=== PATIENT | female | born 1945 | race Caucasian/White ===

== ENCOUNTER 2017-07-09 15:38 | Emergency (ER) | payer MEDICARE ==
[2017-07-09 16:20] LABS: BASOPHIL % 0.6 % (0.0-0.4); Bilirubin NEGATIVE (NEGATIVE); Blood 250 Ery/ul (0-5); COMPLETE URINE MICROSCOPIC? YES; Collection Type CATH; Eosinophil % 3.7 % (0.00-5.0); Glucose NEGATIVE (NEGATIVE); Granulocytes % 58.8 % (36.0-66.0); Leukocyte Esterase 2+ (NEGATIVE); Lymphocytes % 28.4 % (24.0-44.0); Mean Cell Volume 101.4 fl (78-100); Mean Corpuscular Hemoglobin 32.1 pg (26-32); Mean Platelet Volume 9.2 fl (6-9.5); Monocytes % 8.5 % (0.0-12.0); Platelet Count 329 K/mm3 (150-450); Red Blood Count 3.64 M/mm3 (4.1-5.4); Red Cell Distribution Width 13.2 % (11.5-14.0); White Blood Count 8.5 K/mm3 (4.0-10.5)
[2017-07-09 16:21] LABS: ADD URINE CULTURE? YES (NO)
--- NOTE | 2017-07-09 16:23 | ERPHSYRPT ---
- History of Present Illness Time Seen by Provider: 07/09/17 16:02 Source: patient, family Patient Subjective Stated Complaint: pt here for urinary retention since 0900 this am, pain to urine Triage Nursing Assessment: pt alert.walked in, resp easy, skin w/d pink, no fever, abd tender to touch, pt colostomy Physician History: CC: unable to void Hx; 72 y/o patient of Dr Erickson. She has urge to urinate but unable since first void this AM. No abd pain. No back or neck pain. No N/T/W. No fever or chills. No hx of this in the past. Timing/Duration: today Allergies/Adverse Reactions: iron Allergy (Severe, Verified 07/09/17 15:54) propoxyphene HCl [From Darvon] Allergy (Mild, Verified 07/09/17 15:54) Sulfa (Sulfonamide Antibiotics) [Sulfa(Sulfonamide Antibiotics)] Allergy (Mild, Verified 07/09/17 15:54) Tetanus Vaccines and Toxoid [Tetanus] Allergy (Mild, Verified 07/09/17 15:54) Home Medications: Calcium Carbonate/Vitamin D3 [Calcium 600-Vit D3 200 Tablet] 1 tab PO DAILY 07/07 [History] Nitrofurantoin Macrocrystal [Nitrofurantoin] 100 mg PO DAILY 05/05/12 [History] Omeprazole 20 MG [Prilosec 20 mg] 20 mg PO DAILY 05/05/12 [History] Verapamil HCl Sr 240 mg [Isoptin S.r. 240 mg] 240 mg PO DAILY 05/05/12 [ History] Glimepiride 4 mg [Amaryl 4 mg] 4 mg PO BID 05/07/12 [History] Vitamin B6 & B12 1 tab PO HS 05/07/12 [History] Vitamin D 1 tab PO HS 05/07/12 [History] Hx Tetanus, Diphtheria Vaccination/Date Given: No (unk) Hx Influenza Vaccination/Date Given: No Hx Pneumococcal Vaccination/Date Given: Yes - Review of Systems Constitutional: No Fever, No Chills Eyes: No Symptoms Ears, Nose, & Throat: No Symptoms Respiratory: No Cough, No Dyspnea Cardiac: No Chest Pain Abdominal/Gastrointestinal: No Abdominal Pain, No Nausea, No Vomiting Genitourinary Symptoms: Urinary Retention, No Dysuria Skin: No Rash Neurological: No Headache All Other Systems: Reviewed and Negative - Past Medical History Pertinent Past Medical History: Yes (COPD, crohns disease, colostomy) Neurological History: No Pertinent History ENT History: No Pertinent History Cardiac History: Hypertension Respiratory History: Asthma Endocrine Medical History: Diabetes Type II Musculoskeletal History: Arthritis GI Medical History: Crohns Disease, Gallbladder Disease, Hernia, Other History: Other Psycho-Social History: No Pertinent History Female Reproductive Disorders: No Pertinent History Other Medical History: colostomy,uterus puss pocket, constant uti on antibiotics all the time,reflux current vaginal bleeding - Past Surgical History Past Surgical History: Yes Neuro Surgical History: No Pertinent History Cardiac: No Pertinent History Respiratory: No Pertinent History Gastrointestinal: Cholecystectomy, Colon Resection Genitourinary: No Pertinent History Musculoskeletal: No Pertinent History Female Surgical History: No Pertinent History Other Surgical History: tonsilectomy, ostomy, lt eye sty taken off - Social History Smoking Status: Former smoker How long have you smoked: 30 YRS AGO Exposure to second hand smoke: No Drug Use: none Patient Lives Alone: No - Female History Hx Last Menstrual Period: post Hx Now: No - Nursing Vital Signs Nursing Vital Signs: Initial Vital Signs Temperature 97.5 F 07/09/17 15:44 Pulse Rate 109 H 07/09/17 15:44 Respiratory Rate 18 07/09/17 15:44 Blood Pressure 157/84 07/09/17 15:44 O2 Sat by Pulse Oximetry 94 L 07/09/17 15:44 Pain Scale Pain Intensity 10 - Physical Exam General Appearance: alert Eye Exam: PERRL/EOMI Ears, Nose, Throat Exam: moist mucous membranes Neck Exam: normal inspection, non-tender, supple Respiratory Exam: normal breath sounds Cardiovascular Exam: regular rate/rhythm Gastrointestinal/Abdomen Exam: soft, other (functioning colostomy), No tenderness, No distention Extremity Exam: normal inspection, normal range of motion Neurologic Exam: alert, oriented x 3, cooperative, sensation nml, No motor deficits Skin Exam: warm, dry, No rash SpO2 Interpretation: normal SpO2: 94 Oxygen Delivery: Room Air - Course Nursing assessment & vital signs reviewed: Yes Ordered Tests: Active Orders 24 hr Category Date Time Status Myrick [Catheter-Varnell Myrick] STAT Care 07/09/17 16:36 Active IV Insertion STAT Care 07/09/17 16:35 Active CBC W DIFF Stat Lab 07/09/17 16:00 Completed CMP Stat Lab 07/09/17 16:00 Completed CULTURE,URINE Stat Lab 07/09/17 16:00 Received UA W/ MICROSCOPIC Stat Lab 07/09/17 16:00 Completed Lab/Rad Data: Laboratory Result Diagrams 07/09/17 16:00 07/09/17 16:00 Laboratory Results 07/09/17 07/09/17 07/09/17 Range/Units 16:00 16:00 16:00 WBC 8.5 (4.0-10.5) K/mm3 RBC 3.64 L (4.1-5.4) M/mm3 Hgb 11.7 L (12.0-16.0) gm/dl Hct 36.9 (35-47) % MCV 101.4 H (78-100) fl MCH 32.1 H (26-32) pg MCHC 31.7 L (32-36) g/dl RDW 13.2 (11.5-14.0) % Plt Count 329 (150-450) K/mm3 MPV 9.2 (6-9.5) fl Gran % 58.8 (36.0-66.0) % Lymphocytes % 28.4 (24.0-44.0) % Monocytes % 8.5 (0.0-12.0) % Eosinophils % 3.7 (0.00-5.0) % Basophils % 0.6 (0.0-0.4) % Basophils # 0.05 (0-0.4) Sodium 137 (136-145) mEq/L Potassium 4.0 (3.5-5.1) mEq/L Chloride 101 (98-107) mEq/L Carbon Dioxide 23.0 (21-32) mEq/L Anion Gap 17.0 H (5-15) MEQ/L BUN 17 (9-20) mg/dL Creatinine 1.20 (0.55-1.30) mg/dl Estimated GFR 47 ML/MIN Glucose 150 H (70-110) MG/DL Calcium 9.5 (8.5-10.1) mg/dL Total Bilirubin 0.50 (0.2-1.0) mg/dL AST 31 (15-37) U/L ALT 17 (12-78) U/L Alkaline Phosphatase 60 (46-116) U/L Serum Total Protein 8.5 H (6.4-8.2) gm/dL Albumin 3.6 (3.4-5.0) g/dL Ur Collection Type CATH Urine Color YELLOW (YELLOW) Urine Appearance HAZY (CLEAR) Urine pH 7.0 (5-6) Ur Specific [place] 1.010 (1.005-1.025) Urine Protein 1+ (Negative) Urine Ketones NEGATIVE (NEGATIVE) Urine Blood 250 (0-5) Kory/ul Urine Nitrite NEGATIVE (NEGATIVE) Urine Bilirubin NEGATIVE (NEGATIVE) Urine Urobilinogen NORMAL (0-1) mg/dL Ur Leukocyte Esterase 2+ (NEGATIVE) Urine Microscopic RBC 2-5 (0-2) /HPF Urine Microscopic WBC 50-100 (0-5) /HPF Urine Bacteria MODERATE (NEGATIVE) /HPF Urine Glucose NEGATIVE (NEGATIVE) mg/dL Specimen Received 07/09/17 1600 - Progress Progress Note: 07/09/17 17:12 She has UTI. Feels better after bladder drained with myrick. Will Rx keflex, send home with myrick to be removed at home in AM with appt Dr Erickson later in day. Counseled pt/family regarding: lab results, diagnosis, need for follow-up - Departure Time of Disposition: 17:12 Departure Disposition: Home Clinical Impression: Urinary retention UTI (urinary tract infection) Qualifiers: Urinary tract infection type: acute cystitis Hematuria presence: without hematuria Qualified Code(s): N30.00 - Acute cystitis without hematuria Condition: Stable Critical Care Time: No Referrals: TESSA ERICKSON MD [Primary Care Provider] - Instructions: Care for Your Myrick Catheter -- Female, Urinary Tract Infection ( UTI) Additional Instructions: See Dr Erickson tomorrow at 11:00 AM for recheck- [place] office. Prescriptions: Cephalexin Mh 500 mg [Keflex 500 mg] 1 cap PO QID #28 capsule
[2017-07-09 16:42] LABS: ALBUMIN 3.6 g/dL (3.4-5.0); BILIRUBIN,TOTAL 0.5 mg/dL (0.2-1.0); Total Protein 8.5 gm/dL (6.4-8.2)
[2017-07-09 17:06] LABS: Bacteria MODERATE /HPF (NEGATIVE); WBC 50-100 /HPF (0-5)
[2017-07-09 17:33] VITALS: BP 126/64; PULSE 72; O2SAT 96
== END 2017-07-09 17:33 | disposition home or self-care (01) ==
LOC: ED 15:38
DX: N30.00 Acute cystitis without hematuria (principal); R33.9 Retention of urine, unspecified; Z79.899 Other long term (current) drug therapy; I10 Essential (primary) hypertension; E11.9 Type 2 diabetes mellitus without complications
CPT/HCPCS: 36000; 36415; 51702; 80053; 81000; 85025; 87086; 99284

== ENCOUNTER 2017-07-13 05:48 | Emergency (ER) | payer MEDICARE ==
--- NOTE | 2017-07-13 06:37 | ERPHSYRPT ---
- History of Present Illness Time Seen by Provider: 07/13/17 06:13 Source: patient Patient Subjective Stated Complaint: PT REPORTS BLOOD ET SEDEMINT IN CATH- REPORTS RECENT INCIDENT OF URINARY RETENTION WITH CATH PLACEMENT-CATH REMOVED ET REPLACED 2 DAYS LATER-PT REPORTS SHE IS VERY SORE WHERE THE CATH IS-REPORTS SHE FIRST NOTICED BLOOD LAST NIGHT-STATES SHE ALSO HAS A SORE THROAT ET A HEADACHE Triage Nursing Assessment: PT PINK WARM ET DRY-SEDEMENT NOTED IN CATH BAG-DARK COLORED URINE NOTED WELL-ABD TENDER ET SOFT-RESP EASY ET NONLABORED-PT MOVING ALL EXTETREMITES WITH EASE Physician History: CC: blood in catheter Hx: 72 y/o patient of Dr Erickson had urinary retention past . She had myrick placed. Urine culture no growth but she was placed on keflex. She took the catheter out Thursday AM and saw Dr Erickson with 3 normal voids. She then had further urinary retention and pain so she had myrick replaced at [facility]. She is supposed to arrange follow up with Dr Schwab. However, last night she noted blood in the urine and a clot in the catheter bag. She has been scared all night and unable to sleep. She was worried about the blood in the myrick. No anticoagulants. No prior hx of urinary problems. Allergies/Adverse Reactions: iron Allergy (Severe, Verified 07/13/17 06:03) propoxyphene HCl [From Darvon] Allergy (Mild, Verified 07/13/17 06:03) Sulfa (Sulfonamide Antibiotics) [Sulfa(Sulfonamide Antibiotics)] Allergy (Mild, Verified 07/13/17 06:03) Tetanus Vaccines and Toxoid [Tetanus] Allergy (Mild, Verified 07/13/17 06:03) Home Medications: Calcium Carbonate/Vitamin D3 [Calcium 600-Vit D3 200 Tablet] 1 tab PO DAILY 07/07 [History] Nitrofurantoin Macrocrystal [Nitrofurantoin] 100 mg PO DAILY 05/05/12 [History] Omeprazole 20 MG [Prilosec 20 mg] 20 mg PO DAILY 05/05/12 [History] Verapamil HCl Sr 240 mg [Isoptin S.r. 240 mg] 240 mg PO DAILY 05/05/12 [ History] Glimepiride 4 mg [Amaryl 4 mg] 4 mg PO BID 05/07/12 [History] Vitamin B6 & B12 1 tab PO HS 05/07/12 [History] Vitamin D 1 tab PO HS 05/07/12 [History] Hx Tetanus, Diphtheria Vaccination/Date Given: No Hx Influenza Vaccination/Date Given: No Hx Pneumococcal Vaccination/Date Given: Yes - Review of Systems Constitutional: Malaise, Weakness, No Fever, No Chills Eyes: No Symptoms Respiratory: No Cough, No Dyspnea Cardiac: No Chest Pain Abdominal/Gastrointestinal: No Abdominal Pain, No Nausea, No Vomiting Genitourinary Symptoms: Hematuria (in myrick bag) Skin: No Rash Neurological: No Headache All Other Systems: Reviewed and Negative - Past Medical History Pertinent Past Medical History: Yes Neurological History: No Pertinent History ENT History: No Pertinent History Cardiac History: Hypertension Respiratory History: Asthma Endocrine Medical History: Diabetes Type II Musculoskeletal History: Arthritis GI Medical History: Crohns Disease, Gallbladder Disease, Hernia, Other History: Other Psycho-Social History: No Pertinent History Female Reproductive Disorders: No Pertinent History - Past Surgical History Past Surgical History: Yes Neuro Surgical History: No Pertinent History Cardiac: No Pertinent History Respiratory: No Pertinent History Gastrointestinal: Cholecystectomy, Colon Resection Genitourinary: No Pertinent History Musculoskeletal: No Pertinent History Female Surgical History: No Pertinent History Other Surgical History: tonsilectomy, ostomy, lt eye sty taken off - Social History Smoking Status: Former smoker How long have you smoked: 30 YRS AGO Exposure to second hand smoke: No Drug Use: none Patient Lives Alone: No - Female History Hx Now: No - Nursing Vital Signs Nursing Vital Signs: Initial Vital Signs Temperature 98.5 F 07/13/17 05:58 Pulse Rate 92 H 07/13/17 05:58 Respiratory Rate 20 07/13/17 05:58 Blood Pressure 146/70 07/13/17 05:58 O2 Sat by Pulse Oximetry 96 07/13/17 05:58 Pain Scale Pain Intensity 3 - Physical Exam General Appearance: alert Eye Exam: PERRL/EOMI Respiratory Exam: lungs clear Cardiovascular Exam: regular rate/rhythm Extremity Exam: normal inspection, normal range of motion, No pedal edema Neurologic Exam: alert, oriented x 3, cooperative, sensation nml, No motor deficits Skin Exam: warm, dry, No rash SpO2 Interpretation: normal SpO2: 96 Oxygen Delivery: Room Air Comments: 07/13/17 06:36 There is clot in myrick bag. Some red tinged thin urine in tubing which is draining well and not obstructed. - Course Nursing assessment & vital signs reviewed: Yes Ordered Tests: Active Orders 24 hr Category Date Time Status BMP Stat Lab 07/13/17 06:59 Completed CBC W DIFF Stat Lab 07/13/17 06:25 Completed CULTURE,URINE Stat Lab 07/13/17 06:59 Received PROTIME WITH INR Stat Lab 07/13/17 06:59 Completed PTT Stat Lab 07/13/17 06:59 Completed UA W/ MICROSCOPIC Stat Lab 07/13/17 06:59 Completed Lab/Rad Data: Laboratory Result Diagrams 07/13/17 06:25 07/13/17 06:59 Laboratory Results 07/13/17 07/13/17 07/13/17 Range/Units 06:59 06:59 06:59 WBC (4.0-10.5) K/mm3 RBC (4.1-5.4) M/mm3 Hgb (12.0-16.0) gm/dl Hct (35-47) % MCV (78-100) fl MCH (26-32) pg MCHC (32-36) g/dl RDW (11.5-14.0) % Plt Count (150-450) K/mm3 MPV (6-9.5) fl Gran % (36.0-66.0) % Lymphocytes % (24.0-44.0) % Monocytes % (0.0-12.0) % Eosinophils % (0.00-5.0) % Basophils % (0.0-0.4) % Basophils # (0-0.4) INR 1.04 (0.8-3.0) APTT 33.7 (25.3-37.0) SECONDS Sodium 141 (136-145) mEq/L Potassium 4.0 (3.5-5.1) mEq/L Chloride 107 (98-107) mEq/L Carbon Dioxide 24.6 (21-32) mEq/L Anion Gap 13.4 (5-15) MEQ/L BUN 20 (9-20) mg/dL Creatinine 1.23 (0.55-1.30) mg/dl Estimated GFR 45 ML/MIN Glucose 140 H (70-110) MG/DL Calcium 9.4 (8.5-10.1) mg/dL Ur Collection Type INDWELLING CATH Urine Color YELLOW (YELLOW) Urine Appearance HAZY (CLEAR) Urine pH 6.0 (5-6) Ur Specific [place] 1.015 (1.005-1.025) Urine Protein 30 (Negative) Urine Ketones NEGATIVE (NEGATIVE) Urine Blood 250 (0-5) Kory/ul Urine Nitrite NEGATIVE (NEGATIVE) Urine Bilirubin NEGATIVE (NEGATIVE) Urine Urobilinogen NORMAL (0-1) mg/dL Ur Leukocyte Esterase 2+ (NEGATIVE) Urine Microscopic RBC 25-50 (0-2) /HPF Urine Microscopic WBC 5-10 (0-5) /HPF Ur Epithelial Cells FEW (FEW) /HPF Urine Bacteria MODERATE (NEGATIVE) /HPF Urine Mucus MODERATE (NEGATIVE) /HPF Urine Glucose NEGATIVE (NEGATIVE) mg/dL Specimen Received 07-13 0700 07/13/17 Range/Units 06:25 WBC 8.9 (4.0-10.5) K/mm3 RBC 3.35 L (4.1-5.4) M/mm3 Hgb 10.9 L (12.0-16.0) gm/dl Hct 34.5 L (35-47) % MCV 103.0 H (78-100) fl MCH 32.5 H (26-32) pg MCHC 31.6 L (32-36) g/dl RDW 13.3 (11.5-14.0) % Plt Count 282 (150-450) K/mm3 MPV 8.9 (6-9.5) fl Gran % 61.3 (36.0-66.0) % Lymphocytes % 25.1 (24.0-44.0) % Monocytes % 9.4 (0.0-12.0) % Eosinophils % 3.6 (0.00-5.0) % Basophils % 0.6 (0.0-0.4) % Basophils # 0.05 (0-0.4) INR (0.8-3.0) APTT (25.3-37.0) SECONDS Sodium (136-145) mEq/L Potassium (3.5-5.1) mEq/L Chloride (98-107) mEq/L Carbon Dioxide (21-32) mEq/L Anion Gap (5-15) MEQ/L BUN (9-20) mg/dL Creatinine (0.55-1.30) mg/dl Estimated GFR ML/MIN Glucose (70-110) MG/DL Calcium (8.5-10.1) mg/dL Ur Collection Type Urine Color (YELLOW) Urine Appearance (CLEAR) Urine pH (5-6) Ur Specific [place] (1.005-1.025) Urine Protein (Negative) Urine Ketones (NEGATIVE) Urine Blood (0-5) Kory/ul Urine Nitrite (NEGATIVE) Urine Bilirubin (NEGATIVE) Urine Urobilinogen (0-1) mg/dL Ur Leukocyte Esterase (NEGATIVE) Urine Microscopic RBC (0-2) /HPF Urine Microscopic WBC (0-5) /HPF Ur Epithelial Cells (FEW) /HPF Urine Bacteria (NEGATIVE) /HPF Urine Mucus (NEGATIVE) /HPF Urine Glucose (NEGATIVE) mg/dL Specimen Received - Progress Progress Note: 07/13/17 06:36 She was rather anxious. Reassurance given. She will need to follow up with Dr Schwab. Will check labs. She is still on keflex. 07/13/17 07:26 1 small clot in myrick tube but draining very well. Labs reassuring. Will release to follow up with Dr Schwab. Instr given. Counseled pt/family regarding: lab results, diagnosis, need for follow-up - Departure Time of Disposition: 07:27 Departure Disposition: Home Clinical Impression: Hematuria, Urinary retention Condition: Stable Critical Care Time: No Referrals: TESSA ERICKSON MD [Primary Care Provider] - KATHY SCHWAB [COURTESY STAFF] - Instructions: Hematuria, Care for Your Myrick Catheter -- Female Additional Instructions: Call [facility] for appointment in 1-2 days. Continue keflex. Return for fever, no drainage, or concerns.
[2017-07-13 06:51] LABS: BASOPHIL % 0.6 % (0.0-0.4); Eosinophil % 3.6 % (0.00-5.0); Granulocytes % 61.3 % (36.0-66.0); Lymphocytes % 25.1 % (24.0-44.0); Mean Corpuscular Hemoglobin 32.5 pg (26-32); Mean Platelet Volume 8.9 fl (6-9.5); Monocytes % 9.4 % (0.0-12.0); Platelet Count 282 K/mm3 (150-450); Red Blood Count 3.35 M/mm3 (4.1-5.4); Red Cell Distribution Width 13.3 % (11.5-14.0); White Blood Count 8.9 K/mm3 (4.0-10.5)
[2017-07-13 07:06] LABS: INR 1.04 (0.8-3.0); PROTIME 11.6 SECONDS (9.95-12.35)
[2017-07-13 07:09] LABS: PTT 33.7 SECONDS (25.3-37.0)
[2017-07-13 07:15] LABS: Collection Type INDWELLING CATH
[2017-07-13 07:16] LABS: ADD URINE CULTURE? YES (NO); Bacteria MODERATE /HPF (NEGATIVE); Bilirubin NEGATIVE (NEGATIVE); Blood 250 Ery/ul (0-5); COMPLETE URINE MICROSCOPIC? YES; Epithelial Cells FEW /HPF (FEW); Glucose NEGATIVE (NEGATIVE); Leukocyte Esterase 2+ (NEGATIVE); Mucus MODERATE /HPF (NEGATIVE)
[2017-07-13 07:18] LABS: ANION GAP 13.4 MEQ/L (5-15); Carbon Dioxide 24.6 mEq/L (21-32)
[2017-07-13 07:27] VITALS: BP 134/55; PULSE 76
[2017-07-13 07:28] VITALS: O2SAT 96
== END 2017-07-13 07:47 | disposition home or self-care (01) ==
LOC: ED 05:48
DX: R31.9 Hematuria, unspecified (principal); R33.9 Retention of urine, unspecified
CPT/HCPCS: 36415; 80048; 81000; 85025; 85610; 85730; 87086; 99283

== ENCOUNTER 2018-05-28 08:13 | Emergency (ER) | payer MEDICARE ==
--- NOTE | 2018-05-28 09:10 | ERPHSYRPT ---
- History of Present Illness Time Seen by Provider: 05/28/18 09:05 Source: patient Exam Limitations: no limitations Patient Subjective Stated Complaint: staes pain/numbness to right upper arm when she woke up this morning. decreasing on arrival to ER. Has been being treated for UTI. has been through 2 rounds of ATB. still feels like she has a UTI Has and ileostomy Triage Nursing Assessment: alert and oriented. able to get undressed with assistance. ab le to move right arm.. pain on palpation to right upper arm.. denies injury.. + radial pulse present. 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 no neuro defecits. ambulates with no problems. denies weakness of numbness anywhere else. has been being tx for UTI states feels like still has one. denies abdominal pain. Physician History: This is a 73-year-old white female with history of asthma, diabetes, high blood pressure, arthritis, Crohn's, She arrives with complaints that she woke up this morning around 7:00 with the pain in her right hand right arm worse with movement worse with gripping she states she has paresthesias to the right hand She is not having any problems moving the hand She has no other sensory problems. She does state that she is recently been treated for urinary tract infection and she feels like she still has a urinary tract infection. Past medical history includes asthma, diabetes, high blood pressure, arthritis, Crohn's, gallbladder disease, hernia. Past surgical history includes cholecystectomy, colds resection, tonsillectomy, stye in the left eye. Timing/Duration: today (this morning at 7 AM) Severity: moderate Modifying Factors: Improves With: nothing Associated Symptoms: other (pain in right hand rightarm, paresthesia right hand ), No nausea, No vomiting, No abdominal pain, No shortness of breath, No heartburn, No diaphoresis, No cough, No chills, No chest pain, No fever, No headaches, No loss of appetite, No malaise, No rash, No syncope, No seizure, No weakness Allergies/Adverse Reactions: iron Allergy (Severe, Verified 05/28/18 10:34) propoxyphene HCl [From Darvon] Allergy (Mild, Verified 05/28/18 10:34) Sulfa (Sulfonamide Antibiotics) [Sulfa(Sulfonamide Antibiotics)] Allergy (Mild, Verified 05/28/18 10:34) Tetanus Vaccines and Toxoid [Tetanus] Allergy (Mild, Verified 05/28/18 10:34) Home Medications: Calcium Carbonate/Vitamin D3 [Calcium 600-Vit D3 200 Tablet] 1 tab PO DAILY 07/07 [History] Nitrofurantoin Macrocrystal [Nitrofurantoin] 100 mg PO DAILY 05/05/12 [History] Omeprazole 20 MG [Prilosec 20 mg] 20 mg PO DAILY 05/05/12 [History] Verapamil HCl Sr 240 mg [Isoptin S.r. 240 mg] 240 mg PO DAILY 05/05/12 [ History] Glimepiride 4 mg [Amaryl 4 mg] 4 mg PO BID 05/07/12 [History] Vitamin B6 & B12 1 tab PO HS 05/07/12 [History] Vitamin D 1 tab PO HS 05/07/12 [History] Hx Tetanus, Diphtheria Vaccination/Date Given: No Hx Influenza Vaccination/Date Given: No Hx Pneumococcal Vaccination/Date Given: Yes - Review of Systems Constitutional: No Fever, No Chills Eyes: No Symptoms Ears, Nose, & Throat: No Symptoms Respiratory: No Cough, No Dyspnea Cardiac: No Chest Pain, No Edema, No Syncope Abdominal/Gastrointestinal: No Abdominal Pain, No Nausea, No Vomiting, No Diarrhea Genitourinary Symptoms: Dysuria Musculoskeletal: Other (pain in right hand worse with gripping, pain right arm) Skin: No Rash Neurological: Parasthesia (Paresthesia right hand), No Dizziness, No Focal Weakness, No Sensory Changes Psychological: No Symptoms Endocrine: No Symptoms All Other Systems: Reviewed and Negative - Past Medical History Pertinent Past Medical History: Yes Neurological History: No Pertinent History ENT History: No Pertinent History Cardiac History: Hypertension Respiratory History: Asthma Endocrine Medical History: Diabetes Type II Musculoskeletal History: Arthritis GI Medical History: Crohns Disease, Gallbladder Disease, Hernia, Other History: Other Psycho-Social History: No Pertinent History Female Reproductive Disorders: No Pertinent History Other Medical History: colostomy,uterus puss pocket, constant uti on antibiotics all the time,reflux current vaginal bleeding - Past Surgical History Past Surgical History: Yes Neuro Surgical History: No Pertinent History Cardiac: No Pertinent History Respiratory: No Pertinent History Gastrointestinal: Cholecystectomy, Colon Resection Genitourinary: No Pertinent History Musculoskeletal: No Pertinent History Female Surgical History: No Pertinent History Other Surgical History: tonsilectomy, ostomy, lt eye sty taken off - Social History Smoking Status: Unknown if ever smoked How long have you smoked: 30 YRS AGO Exposure to second hand smoke: No Drug Use: none Patient Lives Alone: No - Female History Hx Now: No - Nursing Vital Signs Nursing Vital Signs: Initial Vital Signs Temperature 97.9 F 05/28/18 08:34 Pulse Rate 85 05/28/18 08:34 Respiratory Rate 18 05/28/18 08:34 Blood Pressure 140/59 05/28/18 08:34 O2 Sat by Pulse Oximetry 98 05/28/18 08:34 Pain Scale Pain Intensity 0 - Physical Exam General Appearance: mild distress Eye Exam: PERRL/EOMI, eyes nml inspection Ears, Nose, Throat Exam: normal ENT inspection, TMs normal, pharynx normal, moist mucous membranes Neck Exam: normal inspection, non-tender, supple, full range of motion Respiratory Exam: normal breath sounds, lungs clear, No respiratory distress Cardiovascular Exam: regular rate/rhythm, normal heart sounds, normal peripheral pulses Gastrointestinal/Abdomen Exam: soft, normal bowel sounds, No tenderness, No mass Back Exam: normal inspection, normal range of motion, No CVA tenderness, No vertebral tenderness Extremity Exam: normal range of motion, other (pain was gripping right hand, ) Neurologic Exam: alert, oriented x 3, cooperative, pattern marker II-XII nml as tested, normal mood/affect, nml cerebellar function, nml station & gait, sensation nml, No motor deficits Skin Exam: normal color Lymphatic Exam: No adenopathy SpO2 Interpretation: normal (98%) SpO2: 98 Oxygen Delivery: Room Air - Course Nursing assessment & vital signs reviewed: Yes EKG Interpreted by Me: RATE (82 bpm), Sinus Rhythm, NORMAL AXIS, Other (EKG: Sinus rhythm, 82 bpm, normal axis, no acute ST or T wave changes noted) Ordered Tests: Active Orders 24 hr Category Date Time Status EKG-ER Only STAT Care 05/28/18 09:51 Active IV Insertion STAT Care 05/28/18 09:04 Active VENOUS UNILAT/LIMITED EXTREMIT [US] Stat Exams 05/28/18 10:07 Taken BLOOD CULTURE Stat Lab 05/28/18 10:31 Received CBC W DIFF Stat Lab 05/28/18 09:05 Completed CMP Stat Lab 05/28/18 09:05 Completed CULTURE,URINE Stat Lab 05/28/18 09:13 Received D-DIMER QUANTITATION Stat Lab 05/28/18 09:05 Completed Lactic Acid Stat Lab 05/28/18 09:55 Completed PROTIME WITH INR Stat Lab 05/28/18 09:05 Completed PTT Stat Lab 05/28/18 09:05 Completed UA W/ MICROSCOPIC Stat Lab 05/28/18 09:13 Completed Medication Summary Discontinued Medications Generic Name Dose Route Start Last Admin Trade Name Freq PRN Reason Stop Dose Admin Ceftriaxone Sodium/Dextrose 1 g in 50 mls @ 100 mls/hr 05/28/18 09:51 10:45 Rocephin 1 Gm-D5w 50 Ml Bag IV 05/28/18 10:20 100 ml/hr STAT STA 100 mls/hr Administration Sodium Chloride 1,000 mls @ 999 mls/hr 05/28/18 09:50 05/28/18 10:26 Sodium Chloride 0.9% 1000 Ml IV 05/28/18 10:50 999 mls/hr .Q1H1M STA Administration Sodium Chloride Confirm 05/28/18 10:14 Sodium Chloride 0.9% 1000 Ml Administered 05/28/18 10:15 Dose 1,000 mls @ ud .ROUTE .STK-MED ONE Ceftriaxone Sodium/Dextrose Confirm 05/28/18 10:14 Rocephin 1 Gm-D5w 50 Ml Bag Administered 05/28/18 10:15 Dose 1 g in 50 mls @ ud IV .STK-MED ONE Lab/Rad Data: Laboratory Result Diagrams 05/28/18 09:05 05/28/18 09:05 Laboratory Results 05/28/18 05/28/18 05/28/18 Range/Units 09:55 09:13 09:05 WBC (4.0-10.5) K/mm3 RBC (4.1-5.4) M/mm3 Hgb (12.0-16.0) gm/dl Hct (35-47) % MCV (78-100) fl MCH (26-32) pg MCHC (32-36) g/dl RDW (11.5-14.0) % Plt Count (150-450) K/mm3 MPV (6-9.5) fl Gran % (36.0-66.0) % Eos # (Auto) (0-0.5) Absolute Lymphs (auto) (1.0-4.6) Absolute Monos (auto) (0.0-1.3) Lymphocytes % (24.0-44.0) % Monocytes % (0.0-12.0) % Eosinophils % (0.00-5.0) % Basophils % (0.0-0.4) % Absolute Granulocytes (1.4-6.9) Basophils # (0-0.4) PT 13.4 H (9.95-12.35) SECONDS INR 1.15 (0.8-3.0) APTT 32.0 (25.3-37.0) SECONDS D-Dimer 7039 H* (215-500) ng/mL Sodium (137-145) mmol/L Potassium (3.5-5.1) mmol/L Chloride (98-107) mmol/L Carbon Dioxide (22-30) mmol/L Anion Gap (5-15) MEQ/L BUN (7-17) mg/dL Creatinine (0.52-1.04) mg/dL Estimated GFR ML/MIN Glucose (74-106) mg/dL Lactic Acid 0.7 (0.4-2.0) Calcium (8.4-10.2) mg/dL Total Bilirubin (0.2-1.3) mg/dL AST (14-36) U/L ALT (0-35) U/L Alkaline Phosphatase (38-126) U/L Serum Total Protein (6.3-8.2) g/dL Albumin (3.5-5.0) g/dL Ur Collection Type CLEAN CATCH Urine Color STRAW (YELLOW) Urine Appearance SLIGHTLY HAZY (CLEAR) Urine pH 8.0 (5-6) Ur Specific [place] 1.005 (1.005-1.025) Urine Protein TRACE (Negative) Urine Ketones NEGATIVE (NEGATIVE) Urine Blood 250 (0-5) Kory/ul Urine Nitrite NEGATIVE (NEGATIVE) Urine Bilirubin NEGATIVE (NEGATIVE) Urine Urobilinogen NORMAL (0-1) mg/dL Ur Leukocyte Esterase 2+ (NEGATIVE) Urine Microscopic RBC 5-10 (0-2) /HPF Urine Microscopic WBC 50-100 (0-5) /HPF Ur Epithelial Cells MODERATE (FEW) /HPF Amorphous Crystals MODERATE (NEGATIVE) /HPF Urine Bacteria MANY (NEGATIVE) /HPF Hyaline Casts 0-2 (0-2) /LPF Urine Culture Reflexed YES (NO) Urine Glucose NEGATIVE (NEGATIVE) mg/dL Specimen Received 05/28/18 0915 05/28/18 05/28/18 Range/Units 09:05 09:05 WBC 9.2 (4.0-10.5) K/mm3 RBC 3.06 L (4.1-5.4) M/mm3 Hgb 10.1 L (12.0-16.0) gm/dl Hct 32.3 L (35-47) % MCV 105.6 H (78-100) fl MCH 33.0 H (26-32) pg MCHC 31.3 L (32-36) g/dl RDW 15.2 H (11.5-14.0) % Plt Count 236 (150-450) K/mm3 MPV 9.4 (6-9.5) fl Gran % 73.5 H (36.0-66.0) % Eos # (Auto) 0.19 (0-0.5) Absolute Lymphs (auto) 1.37 (1.0-4.6) Absolute Monos (auto) 0.86 (0.0-1.3) Lymphocytes % 14.9 L (24.0-44.0) % Monocytes % 9.3 (0.0-12.0) % Eosinophils % 2.1 (0.00-5.0) % Basophils % 0.2 (0.0-0.4) % Absolute Granulocytes 6.76 (1.4-6.9) Basophils # 0.02 (0-0.4) PT (9.95-12.35) SECONDS INR (0.8-3.0) APTT (25.3-37.0) SECONDS D-Dimer (215-500) ng/mL Sodium 140 (137-145) mmol/L Potassium 4.5 (3.5-5.1) mmol/L Chloride 111 H (98-107) mmol/L Carbon Dioxide 14 L* (22-30) mmol/L Anion Gap 18.7 H (5-15) MEQ/L BUN 66 H (7-17) mg/dL Creatinine 4.33 H (0.52-1.04) mg/dL Estimated GFR 10.6 ML/MIN Glucose 72 L (74-106) mg/dL Lactic Acid (0.4-2.0) Calcium 9.0 (8.4-10.2) mg/dL Total Bilirubin 0.50 (0.2-1.3) mg/dL AST 13 L (14-36) U/L ALT 10 (0-35) U/L Alkaline Phosphatase 59 (38-126) U/L Serum Total Protein 7.2 (6.3-8.2) g/dL Albumin 3.8 (3.5-5.0) g/dL Ur Collection Type Urine Color (YELLOW) Urine Appearance (CLEAR) Urine pH (5-6) Ur Specific [place] (1.005-1.025) Urine Protein (Negative) Urine Ketones (NEGATIVE) Urine Blood (0-5) Kory/ul Urine Nitrite (NEGATIVE) Urine Bilirubin (NEGATIVE) Urine Urobilinogen (0-1) mg/dL Ur Leukocyte Esterase (NEGATIVE) Urine Microscopic RBC (0-2) /HPF Urine Microscopic WBC (0-5) /HPF Ur Epithelial Cells (FEW) /HPF Amorphous Crystals (NEGATIVE) /HPF Urine Bacteria (NEGATIVE) /HPF Hyaline Casts (0-2) /LPF Urine Culture Reflexed (NO) Urine Glucose (NEGATIVE) mg/dL Specimen Received - Progress Progress: improved Progress Note: 05/28/18 11:00 This is a 73-year-old white female who arrives with complaint of pain in her right arm right hand she has pain with gripping in her right hand she states she awoke with the above noted complaints she also stated that she has some paresthesia in the right hand this occurred at approximately 7:00 this morning. On physical examination patient is alert oriented 3 she has full range of motion to all extremities she has pain with gripping in her right hand pain with palpation of her right anterior wrist Patient's vitals were stable Patient's EKG was remarkable for sinus rhythm 82 bpm normal axis no acute ST or T wave changes were noted Patient pulse ox was within normal limits patient's head a venous Doppler of her right upper extremity which was unremarkable. Patient did have abnormal labs d-dimer was 7039 CBC 9.2 hemoglobin 10.1 hematocrit 32.3 platelets 236 Chemistry sodium 140 potassium 4.5 chloride 111 bicarbonate 14 BUN was 66 creatinine 4.33 glucose was 72 the patient's BUN and creatinine are markedly elevated from previous visits Patient's urine shows white cells of 50-100 white cells per high-power field her lactate is 0.7 Patient is discussed with Dr. Erickson is felt that the patient has acute renal failure increased d-dimer right hand and arm pain. She also has a urinary tract infection. Patient does have a history of colostomy and urostomy Dr. Erickson asked that we transfer the patient to [facility] he states he anticipates that Dr. Bandar Robles will take care of the patient there. I've talked with Dr. Corona ER physician at [facility]. He has accepted the patient for transfer. Patient has been started on IV normal saline bolus of 1 L she has been given Rocephin 1 g IV blood cultures and urine cultures have been obtained. She states she is feeling much better and her pain in her arm is resolved. - Departure Time of Disposition: 11:04 Departure Disposition: Transfer ([facility]) Clinical Impression: Right upper limb pain, Paresthesia of right upper extremity, increased ddimer UTI (urinary tract infection) Qualifiers: Urinary tract infection type: site unspecified Hematuria presence: without hematuria Qualified Code(s): N39.0 - Urinary tract infection, site not specified Acute renal failure Qualifiers: Acute renal failure type: unspecified Qualified Code(s): N17.9 - Acute kidney failure, unspecified Condition: Fair Critical Care Time: No Referrals: TESSA ERICKSON MD [Primary Care Provider] -
[2018-05-28 09:26] LABS: BASOPHIL % 0.2 % (0.0-0.4); Basophil (Absolute #) 0.02 (0-0.4); Eosinophil % 2.1 % (0.00-5.0); Eosinophil (Absolute #) 0.19 (0-0.5); Granulocyte Absolute (ANC) 6.76 (1.4-6.9); Granulocytes % 73.5 % (36.0-66.0); Hematocrit 32.3 % (35-47); Hemoglobin 10.1 gm/dl (12.0-16.0); Lymphocyte (Absolute #) 1.37 (1.0-4.6); Lymphocytes % 14.9 % (24.0-44.0); Mean Cell Volume 105.6 fl (78-100); Mean Corpuscular Hgb Concent. 31.3 g/dl (32-36); Mean Platelet Volume 9.4 fl (6-9.5); Monocyte (Absolute #) 0.86 (0.0-1.3); Monocytes % 9.3 % (0.0-12.0); Platelet Count 236 K/mm3 (150-450); Red Blood Count 3.06 M/mm3 (4.1-5.4); Red Cell Distribution Width 15.2 % (11.5-14.0); White Blood Count 9.2 K/mm3 (4.0-10.5)
[2018-05-28 09:37] LABS: Appearance SLIGHTLY HAZY (CLEAR); Bilirubin NEGATIVE (NEGATIVE); Blood 250 Ery/ul (0-5); Glucose NEGATIVE (NEGATIVE); Ketones NEGATIVE (NEGATIVE); Leukocyte Esterase 2+ (NEGATIVE); Nitrite NEGATIVE (NEGATIVE); Protein,Urine Dip TRACE (Negative); Specific Gravity 1.005 (1.005-1.025); Urobilinogen NORMAL mg/dL (0-1)
[2018-05-28 09:38] LABS: Amourphous Crystal MODERATE /HPF (NEGATIVE); Bacteria MANY /HPF (NEGATIVE); Epithelial Cells MODERATE /HPF (FEW); Hyaline Casts 0-2 /LPF (0-2); WBC 50-100 /HPF (0-5)
[2018-05-28 09:41] LABS: INR 1.15 (0.8-3.0)
[2018-05-28 09:47] LABS: ALBUMIN 3.8 g/dL (3.5-5.0); ANION GAP 18.7 MEQ/L (5-15); BILIRUBIN,TOTAL 0.5 mg/dL (0.2-1.3); Creatinine 1 4.33 mg/dL (0.52-1.04); Potassium 4.5 mmol/L (3.5-5.1); Total Protein 7.2 g/dL (6.3-8.2)
[2018-05-28] MEDS ORDERED: Sodium Chloride 0.9% 1000 ML 1,000 ML IV STA (09:50)
[2018-05-28] MEDS ORDERED: ROCEPHIN 1 Gm-D5w 50 ml Bag** 1 G/50 ML IVPB IV STA (09:51)
[2018-05-28] MEDS ORDERED: ROCEPHIN 1 Gm-D5w 50 ml Bag** 1 G/50 ML IVPB IV ONE (10:14)
[2018-05-28] MEDS ORDERED: Sodium Chloride 0.9% 1000 ML 1,000 ML ONE (10:14)
[2018-05-28 11:02] VITALS: BP 134/60; PULSE 61
[2018-05-28 11:05] VITALS: O2SAT 98
--- NOTE | 2018-05-28 11:59 | XRAY ---
Exam: Right upper extremity Doppler venous ultrasound exam from 05/28/2018. Comparison: None. Indication: 73-year-old female complains of right arm pain and numbness starting this morning. Findings: The examination of the right upper extremity venous structures was obtained in the usual manner. Normal transducer compression of the right internal jugular vein is seen. There is also normal color blood flow and Doppler signal within the right internal jugular vein. The subclavian vein reveals normal color blood flow and Doppler signal. Normal transducer compression, color blood flow, and Doppler signal is seen within the right axillary vein. Normal transducer compression and color blood flow was seen within the cephalic vein and the basilic vein. The brachial veins reveal normal color blood flow, Doppler signal, and transducer compression. The median cubital vein reveals normal transducer compression, color blood flow, and Doppler signal. Normal transducer compression is seen within the distal radial and ulnar veins as well as Doppler signal augmentation. Impression: 1. No evidence of DVT is seen within the right upper extremity.
== END 2018-05-28 11:49 | disposition short-term general hospital (02) ==
LOC: ED 08:13
DX: M79.601 Pain in right arm (principal); R20.2 Paresthesia of skin; N39.0 Urinary tract infection, site not specified; N17.9 Acute kidney failure, unspecified; R79.89 Other specified abnormal findings of blood chemistry; J45.909 Unspecified asthma, uncomplicated; E11.9 Type 2 diabetes mellitus without complications; I10 Essential (primary) hypertension; M19.90 Unspecified osteoarthritis, unspecified site; K50.90 Crohn's disease, unspecified, without complications; Z79.899 Other long term (current) drug therapy
CPT/HCPCS: 36000; 36415; 80053; 81000; 83605; 85025; 85379; 85610; 85730; 87040; 87086; 93005; 93971; 96360; 96365; 99284; J0696

== ENCOUNTER 2019-01-22 20:41 | Emergency (ER) | payer MEDICARE ==
[2019-01-22] MEDS ORDERED: Sodium Chloride 0.9% 1000 ML 1,000 ML IV STA (21:38)
--- NOTE | 2019-01-22 21:38 | ERPHSYRPT ---
- History of Present Illness Time Seen by Provider: 01/22/19 21:05 Source: patient, family Exam Limitations: no limitations Patient Subjective Stated Complaint: pt states she had a voice mail from dr ogden 's of[facility] telling her to get to the er to have fluids. Triage Nursing Assessment: pt awake and alert, answers roycen approp. pt back per wheelchiar, transfers to stretcher per self. respriations nonlabored with lungs cta. urostmy to lt abd with cloudy urine with sediment. colostomy to rt abd with small amt of brown liquid stool. bowel sounds present Physician History: 74 y/o white female pt with h/o crohns dz s/p colectomy and permanent right lower quadrant ostomy and permanent left lower quadrant urostomy after cytectomy for bladder cancer. pt had labs obtained yesterday at [facility] by her nanotechnician because urostomy was not putting out as much urine as usual. she was notified by their office today of abnormalities. told to go to nearest hospital ED for eval and management Timing/Duration: today Severity: mild Associated Symptoms: denies symptoms Allergies/Adverse Reactions: iron Allergy (Severe, Verified 01/22/19 21:02) propoxyphene HCl [From Darvon] Allergy (Mild, Verified 01/22/19 21:02) Sulfa (Sulfonamide Antibiotics) [Sulfa(Sulfonamide Antibiotics)] Allergy (Mild, Verified 01/22/19 21:02) Tetanus Vaccines and Toxoid [Tetanus] Allergy (Mild, Verified 01/22/19 21:02) Home Medications: Calcium Carbonate/Vitamin D3 [Calcium 600-Vit D3 200 Tablet] 1 tab PO DAILY 07/07 [History] Nitrofurantoin Macrocrystal [Nitrofurantoin] 100 mg PO BID 05/05/12 [History] Omeprazole 20 MG [Prilosec 20 mg] 20 mg PO DAILY 05/05/12 [History] Verapamil HCl Sr 240 mg [Isoptin S.r. 240 mg] 240 mg PO BID 05/05/12 [ History] Glimepiride 4 mg [Amaryl 4 mg] 2 mg PO BID 05/07/12 [History] Vitamin B6 & B12 1 tab PO HS 05/07/12 [History] Folic Acid 0.8 mg PO DAILY 01/22/19 [History] Losartan Potassium 50 mg [Cozaar 50 MG] 50 mg PO DAILY 01/22/19 [History] Sodium Bicarbonate 325 mg PO BID 01/22/19 [History] Hx Tetanus, Diphtheria Vaccination/Date Given: Yes Hx Influenza Vaccination/Date Given: Yes Hx Pneumococcal Vaccination/Date Given: Yes Immunizations Up to Date: Yes - Review of Systems Constitutional: No Symptoms Eyes: No Symptoms Ears, Nose, & Throat: No Symptoms Respiratory: No Symptoms Cardiac: No Symptoms Abdominal/Gastrointestinal: No Symptoms Genitourinary Symptoms: No Symptoms Musculoskeletal: No Symptoms Skin: No Symptoms Neurological: No Symptoms Psychological: No Symptoms Endocrine: No Symptoms Hematologic/Lymphatic: No Symptoms Immunological/Allergic: No Symptoms All Other Systems: Reviewed and Negative - Past Medical History Pertinent Past Medical History: Yes Neurological History: No Pertinent History ENT History: No Pertinent History Cardiac History: Hypertension Respiratory History: Asthma Endocrine Medical History: Diabetes Type II Musculoskeletal History: Arthritis GI Medical History: Crohns Disease, Gallbladder Disease, Hernia, Other History: Other Psycho-Social History: No Pertinent History Female Reproductive Disorders: No Pertinent History Other Medical History: colostomy,uterus pus pocket, constant uti on antibiotics all the time,reflux current vaginal bleeding - Past Surgical History Past Surgical History: Yes Neuro Surgical History: No Pertinent History Cardiac: No Pertinent History Respiratory: No Pertinent History Gastrointestinal: Cholecystectomy, Colon Resection Genitourinary: No Pertinent History Musculoskeletal: No Pertinent History Female Surgical History: No Pertinent History Other Surgical History: tonsilectomy, ostomy, lt eye sty taken off. urostomy and colostomy d/t cancer - Social History Smoking Status: Former smoker How long have you smoked: 30 YRS AGO Exposure to second hand smoke: No Drug Use: none Patient Lives Alone: No - Nursing Vital Signs Nursing Vital Signs: Initial Vital Signs Temperature 97.4 F 01/22/19 20:50 Pulse Rate 89 01/22/19 20:50 Respiratory Rate 18 01/22/19 20:50 Blood Pressure 117/55 01/22/19 20:50 O2 Sat by Pulse Oximetry 100 01/22/19 20:50 Pain Scale Pain Intensity 0 - Physical Exam General Appearance: no apparent distress, alert Eye Exam: PERRL/EOMI Ears, Nose, Throat Exam: normal ENT inspection, dry mucous membranes Neck Exam: normal inspection, non-tender, supple, full range of motion Respiratory Exam: normal breath sounds Cardiovascular Exam: regular rate/rhythm, normal heart sounds, normal peripheral pulses Gastrointestinal/Abdomen Exam: soft, normal bowel sounds, other (end ostomy right lower quadrant pink and functioning, urostomy left lower quadrant pink and functioning) Pelvic Exam: not done Rectal Exam: not done Back Exam: normal inspection, normal range of motion, No CVA tenderness, No vertebral tenderness Extremity Exam: normal inspection, normal range of motion, pelvis stable Neurologic Exam: alert, oriented x 3, cooperative, assembler adjuster II-XII nml as tested Skin Exam: normal color, warm, dry Lymphatic Exam: No adenopathy SpO2 Interpretation: normal SpO2: 100 O2 Delivery: Room Air - Course Nursing assessment & vital signs reviewed: Yes Ordered Tests: Active Orders 24 hr Category Date Time Status IV Insertion STAT Care 01/22/19 21:38 Active CBC W DIFF Stat Lab 01/22/19 22:07 Completed CMP Stat Lab 01/22/19 22:07 Completed Manual Differential NC Stat Lab 01/22/19 22:07 Completed Medication Summary Generic Name Dose Route Start Last Admin Trade Name Freq PRN Reason Stop Dose Admin Dextrose/Sodium Chloride 1,000 mls @ 100 mls/hr 01/22/19 23:30 01/22/19 23:26 Dextrose 5%-Ns Iv Solution 1000 Ml IV 02/21/19 23:29 100 mls/hr .Q10H KATERINA Administration Discontinued Medications Generic Name Dose Route Start Last Admin Trade Name Freq PRN Reason Stop Dose Admin Dextrose 50 ml 01/22/19 23:17 01/22/19 23:26 D50w 50 Ml Abboject IV 01/22/19 23:18 50 ml STAT ONE Administration Dextrose Confirm 01/22/19 23:25 D50w 50 Ml Abboject Administered 01/22/19 23:26 Dose 50 ml IV .STK-MED ONE Sodium Chloride 1,000 mls @ 999 mls/hr 01/22/19 21:38 01/22/19 22:13 Sodium Chloride 0.9% 1000 Ml IV 01/22/19 22:38 999 mls/hr .Q1H1M STA Administration Sodium Chloride Confirm 01/22/19 22:11 Sodium Chloride 0.9% 1000 Ml Administered 01/22/19 22:12 Dose 1,000 mls @ ud .ROUTE .STK-MED ONE Lab/Rad Data: Laboratory Result Diagrams 01/22/19 22:07 01/22/19 22:07 Laboratory Results 01/22/19 01/22/19 Range/Units 22:07 22:07 WBC 7.4 (4.0-10.5) K/mm3 RBC 3.16 L (4.1-5.4) M/mm3 Hgb 10.3 L (12.0-16.0) gm/dl Hct 32.4 L (35-47) % MCV 102.5 H (78-100) fl MCH 32.5 H (26-32) pg MCHC 31.8 L (32-36) g/dl RDW 13.2 (11.5-14.0) % Plt Count 308 (150-450) K/mm3 MPV 8.9 (6-9.5) fl Absolute Granulocytes 3.57 (1.4-6.9) Sodium 136 L (137-145) mmol/L Potassium 4.5 (3.5-5.1) mmol/L Chloride 106 (98-107) mmol/L Carbon Dioxide 18 L (22-30) mmol/L Anion Gap 16.1 H (5-15) MEQ/L BUN 46 H (7-17) mg/dL Creatinine 2.30 H (0.52-1.04) mg/dL Estimated GFR 21.9 ML/MIN Glucose 46 L* (74-106) mg/dL Calcium 8.8 (8.4-10.2) mg/dL Total Bilirubin 0.50 (0.2-1.3) mg/dL AST 27 (14-36) U/L ALT 14 (0-35) U/L Alkaline Phosphatase 59 (38-126) U/L Serum Total Protein 8.1 (6.3-8.2) g/dL Albumin 3.9 (3.5-5.0) g/dL - Progress Progress: improved, re-examined Progress Note: 01/22/19 23:48 pt a very difficult stick. since lab blood glucose was 46, we gave pt oral intake, iv dextrose, and rehydrated her. she is feeling much better after hydration. since she is a very difficult draw, we will use accucheck. Counseled pt/family regarding: lab results, diagnosis, need for follow-up - Departure Departure Disposition: Home Clinical Impression: Hypoglycemia, Chronic renal insufficiency Condition: Stable Critical Care Time: No Referrals: TESSA ERICKSON MD [Primary Care Provider] - Additional Instructions: drink plenty of fluids and glucose. monitor your blood sugar closely. follow up with your primary doctor for further management
[2019-01-22 22:11] LABS: Granulocyte Absolute (ANC) 3.57 (1.4-6.9); Hematocrit 32.4 % (35-47); Hemoglobin 10.3 gm/dl (12.0-16.0); Mean Cell Volume 102.5 fl (78-100); Mean Corpuscular Hgb Concent. 31.8 g/dl (32-36); Mean Platelet Volume 8.9 fl (6-9.5); Platelet Count 308 K/mm3 (150-450); Red Blood Count 3.16 M/mm3 (4.1-5.4); Red Cell Distribution Width 13.2 % (11.5-14.0); White Blood Count 7.4 K/mm3 (4.0-10.5)
[2019-01-22] MEDS ORDERED: Sodium Chloride 0.9% 1000 ML 1,000 ML ONE (22:11)
[2019-01-22 22:13] LABS: Mean Corpuscular Hemoglobin 32.5 pg (26-32)
[2019-01-22 22:21] LABS: ALBUMIN 3.9 g/dL (3.5-5.0); ANION GAP 16.1 MEQ/L (5-15); BILIRUBIN,TOTAL 0.5 mg/dL (0.2-1.3); Calcium 8.8 mg/dL (8.4-10.2); Creatinine 1 2.3 mg/dL (0.52-1.04); Potassium 4.5 mmol/L (3.5-5.1); Total Protein 8.1 g/dL (6.3-8.2)
[2019-01-22] MEDS ORDERED: D50W 50 ml Abboject IV ONE ×2 (23:17→23:25)
[2019-01-22] MEDS ORDERED: Dextrose 5%-NS IV Solution 1000 ML 1,000 ML IV ONE (23:24)
[2019-01-22] MEDS ORDERED: Dextrose 5%-NS IV Solution 1000 ML 1,000 ML IV SCH (23:30)
[2019-01-23 00:30] LABS: ATYPICAL LYMPHS 1 %; BAND 2 % (0.0-2.0); Eosinophil 4 % (0.00-3.0); Hypochromia 1+; Lymphocytes 32 % (24-44); Monocyte 9 % (0.0-12.0); Neutrophils 52 % (36.0-66.0); Platelet Estimate NORMAL (NORMAL); Total Cells Counted 100
[2019-01-23 00:43] VITALS: BP 121/54; PULSE 74; O2SAT 99
== END 2019-01-23 00:50 | disposition home or self-care (01) ==
LOC: ED 20:41
DX: E11.649 Type 2 diabetes mellitus with hypoglycemia without coma (principal); N18.9 Chronic kidney disease, unspecified; K50.90 Crohn's disease, unspecified, without complications; N93.9 Abnormal uterine and vaginal bleeding, unspecified; Z93.3 Colostomy status; Z79.899 Other long term (current) drug therapy; I10 Essential (primary) hypertension; J45.909 Unspecified asthma, uncomplicated; Z90.49 Acquired absence of other specified parts of digestive tract; C67.9 Malignant neoplasm of bladder, unspecified
CPT/HCPCS: 36000; 36415; 80053; 82962; 85025; 96360; 96365; 96374; 96375; 99284

== ENCOUNTER 2020-04-10 09:49 | Day surgery (SDC) | payer MEDICARE ==
[2020-04-10] MEDS ORDERED: TETRACAINE 0.5% STERI-UNIT SOL OP ONE ×2 (10:30)
[2020-04-10] MEDS ORDERED: NON-FORMULARY ITEM OP ONE (10:30)
[2020-04-10] MEDS ORDERED: Ak-Dilate OPHTHALMIC*** 1.065 ML, Cyclogyl 1% OPHTH SOL 5 ML 1.065 ML, GATIFLOXACIN 0.5... OP ONE ×4 (10:30)
[2020-04-10] MEDS ORDERED: Lactated Ringers 1,000 ML IV SCH (10:30)
[2020-04-10] MEDS ORDERED: Lactated Ringers 1,000 ML IV ONE (10:39)
[2020-04-10] MEDS ORDERED: Versed 2 MG/2 ML Injection ONE (11:28)
[2020-04-10] MEDS ORDERED: SUBLIMAZE 100 MCG/2 ML ONE (11:28)
[2020-04-10] MEDS ORDERED: Ketamine HCl 50 MG/ML ONE (11:59)
[2020-04-10] MEDS ORDERED: Epinephrine Preservative Free 1 MG/ML INTRAOP ONE (12:00)
[2020-04-10] MEDS ORDERED: BSS 500 ML, Fortaz/Tazicef 1 GM** 0.2 G IO ONE ×2 (12:00)
[2020-04-10] MEDS ORDERED: BETADINE 5% OPHTHALMIC 30 ML OP ONE (12:00)
[2020-04-10] MEDS ORDERED: LIDOCAINE HCL 1% 50 MG/5 ML VL PF IJ ONE (12:00)
[2020-04-10] MEDS ORDERED: DIPRIVAN 200 MG/20 ML IV ONE ×3 (12:04→12:59)
[2020-04-10] MEDS ORDERED: Zofran 4 MG/2 ML VIAL IV PRN (12:30)
[2020-04-10] MEDS ORDERED: ACETAZOLAMIDE 250 MG TABLET PO ONE (12:30)
[2020-04-10] MEDS ORDERED: TYLENOL 325 MG ONE (13:17)
== END 2020-04-10 14:10 | disposition home or self-care (01) ==
LOC: SDC 09:49
PROVIDERS: ATTEND Ophthalmology
DX: H25.812 Combined forms of age-related cataract, left eye (principal); I10 Essential (primary) hypertension; E11.9 Type 2 diabetes mellitus without complications; E78.00 Pure hypercholesterolemia, unspecified; K21.9 Gastro-esophageal reflux disease without esophagitis; Z79.899 Other long term (current) drug therapy
CPT/HCPCS: 99100; C1780; J0171; J2001; J2250; J2704; J3010; A9270-GY

== ENCOUNTER 2020-05-18 09:19 | Emergency (ER) | payer MEDICARE ==
[2020-05-18] MEDS ORDERED: Sodium Chloride 0.9% 1000 ML 1,000 ML IV SCH (09:30)
[2020-05-18] MEDS ORDERED: Sodium Chloride 0.9% 1000 ML 1,000 ML ONE (09:33)
--- NOTE | 2020-05-18 09:42 | ERPHSYRPT ---
- History of Present Illness Time Seen by Provider: 05/18/20 09:20 Source: patient, family, EMS Exam Limitations: clinical condition Patient Subjective Stated Complaint: Pt unable to speak Triage Nursing Assessment: PT presented via medic 1 and placed in room 3. Pt has left sided facial droop, left sided weakness, pt unable to control secretions, pt unable to speak. PT nodding pt has neglect to her left side. pt has colostomy, pt has catheter in. Physician History: 75 years old female with history of hypertension, hyperlipidemia, diabetes mellitus, pancreatic cancer status post ileostomy/colostomy with recent adm ission at [facility] for UTI on antibiotics currently, presented in the ER with strokelike symptoms. reports she woke up and was confused, unable to speak, last well-known is around 7 PM last night. She is unable to move her left upper and lower extremities and has left facial droop with some drooling. She does understand conversation but cannot speak. Denies any chest or abdomina l pain. No recent fall or trauma reported. She is not on any blood thinners. Timing/Duration: today, sudden, worse Severity: moderate, severe Character of Deficits: new weakness, impaired swallowing, Left Facial, LLE, LUE, unable to speak Allergies/Adverse Reactions: propoxyphene HCl [From Darvon] Allergy (Mild, Verified 04/03/20 16:43) shakes Tetanus Vaccines and Toxoid [Tetanus] Allergy (Mild, Verified 04/03/20 16:43) hot,swollen at site iron Adverse Reaction (Mild, Verified 04/03/20 16:43) Nausea and Vomiting Sulfa (Sulfonamide Antibiotics) [Sulfa(Sulfonamide Antibiotics)] Adverse Reaction (Mild, Verified 04/03/20 16:43) states "it does nothing" Home Medications: Omeprazole 20 MG [Prilosec 20 mg] 20 mg PO DAILY 05/05/12 [History] Verapamil HCl Sr 240 mg [Isoptin S.r. 240 mg] 240 mg PO BID 05/05/12 [History] Glimepiride 4 mg [Amaryl 4 mg] 2 mg PO BID 05/07/12 [History] Sodium Bicarbonate 325 mg PO BID 01/22/19 [History] Aspirin 81 mg PO DAILY 04/03/20 [History] Atorvastatin Calcium [Lipitor] 5 mg PO DAILY 04/03/20 [History] Bacillus Coagulan/Calcium Carb [Digest Adv Probio 2 B Cell Cap] 1 each PO DAILY 04/03/20 [History] Biotin 1,000 mcg PO DAILY 04/03/20 [History] Cholecalciferol (Vitamin D3) [Vitamin D3] 2,000 unit PO DAILY 04/03/20 [History] Hctz/Triamterene 25/37.5 mg [Maxzide 25MG] 25 mg PO DAILY 04/03/20 [History] Magnesium 250 mg PO DAILY 04/03/20 [History] Mecobalamin [B12 Active] 2,000 mcg PO DAILY 04/03/20 [History] Hx Tetanus, Diphtheria Vaccination/Date Given: Yes Hx Influenza Vaccination/Date Given: Yes Hx Pneumococcal Vaccination/Date Given: Yes Immunizations Up to Date: Yes Travel Risk - International Travel Have you traveled outside of the country in past 3 weeks: No - Coronavirus Screening Are you exhibiting any of the following symptoms?: No Close contact with a COVID-19 positive Pt in past 14-21 Days: No - Review of Systems All Other Systems: Unable due to condition - Past Medical History Pertinent Past Medical History: Yes Neurological History: No Pertinent History ENT History: No Pertinent History Cardiac History: Hypertension Respiratory History: Asthma Endocrine Medical History: Diabetes Type II Musculoskeletal History: Arthritis GI Medical History: Crohns Disease, Gallbladder Disease, Hernia, Other History: Other Psycho-Social History: No Pertinent History Female Reproductive Disorders: No Pertinent History Other Medical History: colostomy,uterus pus pocket, constant uti on antibiotics all the time,reflux current vaginal bleeding - Past Surgical History Past Surgical History: Yes Neuro Surgical History: No Pertinent History Cardiac: No Pertinent History Respiratory: No Pertinent History Gastrointestinal: Cholecystectomy, Colon Resection, Hernia Repair Genitourinary: No Pertinent History Musculoskeletal: No Pertinent History Female Surgical History: No Pertinent History Other Surgical History: tonsilectomy, ostomy, lt eye sty taken off. urostomy and colostomy d/t cancer. colostomy - Social History Smoking Status: Former smoker How long have you smoked: 30 YRS AGO Exposure to second hand smoke: Yes Drug Use: none Patient Lives Alone: No - Nursing Vital Signs Nursing Vital Signs: Initial Vital Signs Temperature 97.7 F 05/18/20 09:21 Pulse Rate 86 05/18/20 09:21 Respiratory Rate 22 05/18/20 09:21 Blood Pressure 132/71 05/18/20 09:21 O2 Sat by Pulse Oximetry 98 05/18/20 09:21 Pain Scale Pain Intensity 0 - Edie Coma Scale Best Eye Response (Edie): (4) open spontaneously Best Verbal Response (Edie): (4) confused conversation Best Motor Response (Edie): (6) obeys commands Edie Total: 14 - Physical Exam General Appearance: no apparent distress, alert Eye Exam: bilateral eye: normal inspection, PERRL, EOMI Ears, Nose, Throat Exam: pharynx normal, other (Left facial droop.) Neck Exam: normal inspection, non-tender, supple, full range of motion Respiratory: normal breath sounds, lungs clear Cardiovascular: regular rate/rhythm, normal heart sounds Gastrointestinal: soft, normal bowel sounds, No tenderness Back Exam: normal inspection, No CVA tenderness Extremity Exam: normal inspection, pelvis stable Mental Status: alert, cooperative licensed aircraft maintenance engineer Exam: normal hearing, PERRL, facial asymmetry, facial droop (Left), facial paresthesias, facial weakness Coordination/Gait: ABN nose to finger (L) Motor/Sensory: positive Babinski's sign (Left), weak motor strength LUE (No effort against gravity in left upper and lower extremities), weak motor strength LLE DTR: bicep (R): 2+, bicep (L): 3+, knee (R): 2+, knee (L): 3+ Skin Exam: normal color SpO2 Interpretation: normal SpO2: 98 O2 Delivery: Room Air - Course Nursing assessment & vital signs reviewed: Yes Ordered Tests: Active Orders 24 hr Category Date Time Status Accucheck STAT Care 05/18/20 09:26 Active Healthcare Analyst STAT Care 05/18/20 09:27 Active EKG-ER Only STAT Care 05/18/20 09:26 Active IV Insertion STAT Care 05/18/20 09:26 Active IV Insertion-2nd Peripheral STAT Care 05/18/20 09:26 Active NPO (ED) STAT Care 05/18/20 09:26 Active CHEST 1 VIEW (PORTABLE) Stat Exams 05/18/20 09:36 Completed HEAD WITHOUT CONTRAST [CT] Routine Exams 05/18/20 09:23 Completed BLOOD CULTURE Stat Lab 05/18/20 10:01 Ordered CBC W DIFF Stat Lab 05/18/20 09:26 Completed CMP Stat Lab 05/18/20 10:01 Completed Lactic Acid Stat Lab 05/18/20 09:48 Completed PROTIME WITH INR Stat Lab 05/18/20 10:01 Completed PTT Stat Lab 05/18/20 10:01 Completed UA W/RFX UR CULTURE Stat Lab 05/18/20 09:26 Uncollected Medication Summary Generic Name Dose Route Start Last Admin Trade Name Karin PRN Reason Stop Dose Admin Sodium Chloride 1,000 mls @ 100 mls/hr 05/18/20 09:30 05/18/20 10:20 Sodium Chloride 0.9% 1000 Ml IV 06/17/20 09:29 100 mls/hr .Q10H KATERINA Administration Lab/Rad Data: Laboratory Result Diagrams 05/18/20 09:26 05/18/20 10:01 Laboratory Results 05/18/20 05/18/20 05/18/20 Range/Units 10:01 10:01 09:48 WBC (4.0-10.5) K/mm3 RBC (4.1-5.4) M/mm3 Hgb (12.0-16.0) gm/dl Hct (35-47) % MCV (78-100) fl MCH (26-32) pg MCHC (32-36) g/dl RDW (11.5-14.0) % Plt Count (150-450) K/mm3 MPV (7.5-11.0) fl Gran % (36.0-66.0) % Eos # (Auto) (0-0.5) Absolute Lymphs (auto) (1.0-4.6) Absolute Monos (auto) (0.0-1.3) Lymphocytes % (24.0-44.0) % Monocytes % (0.0-12.0) % Eosinophils % (0.00-5.0) % Basophils % (0.0-0.4) % Absolute Granulocytes (1.4-6.9) Basophils # (0-0.4) PT 13.0 H (9.95-12.35) SECONDS INR 1.15 (0.8-3.0) APTT 32.7 (25.3-37.0) SECONDS Sodium 142 (137-145) mmol/L Potassium 3.9 (3.5-5.1) mmol/L Chloride 110 H (98-107) mmol/L Carbon Dioxide 19 L (22-30) mmol/L Anion Gap 17.5 H (5-15) MEQ/L BUN 40 H (7-17) mg/dL Creatinine 2.36 H (0.52-1.04) mg/dL Estimated GFR 21.2 ML/MIN Glucose 104 (74-106) mg/dL Lactic Acid 0.9 (0.4-2.0) Calcium 9.9 (8.4-10.2) mg/dL Total Bilirubin 0.50 (0.2-1.3) mg/dL AST 19 (14-36) U/L ALT 9 (0-35) U/L Alkaline Phosphatase 76 (38-126) U/L Serum Total Protein 8.5 H (6.3-8.2) g/dL Albumin 4.1 (3.5-5.0) g/dL 05/18/20 Range/Units 09:26 WBC 8.0 (4.0-10.5) K/mm3 RBC 3.31 L (4.1-5.4) M/mm3 Hgb 11.2 L (12.0-16.0) gm/dl Hct 35.3 (35-47) % MCV 106.6 H (78-100) fl MCH 33.8 H (26-32) pg MCHC 31.7 L (32-36) g/dl RDW 13.3 (11.5-14.0) % Plt Count 337 (150-450) K/mm3 MPV 8.8 (7.5-11.0) fl Gran % 80.0 H (36.0-66.0) % Eos # (Auto) 0.25 (0-0.5) Absolute Lymphs (auto) 0.80 L (1.0-4.6) Absolute Monos (auto) 0.55 (0.0-1.3) Lymphocytes % 10.0 L (24.0-44.0) % Monocytes % 6.8 (0.0-12.0) % Eosinophils % 3.1 (0.00-5.0) % Basophils % 0.1 (0.0-0.4) % Absolute Granulocytes 6.43 (1.4-6.9) Basophils # 0.01 (0-0.4) PT (9.95-12.35) SECONDS INR (0.8-3.0) APTT (25.3-37.0) SECONDS Sodium (137-145) mmol/L Potassium (3.5-5.1) mmol/L Chloride (98-107) mmol/L Carbon Dioxide (22-30) mmol/L Anion Gap (5-15) MEQ/L BUN (7-17) mg/dL Creatinine (0.52-1.04) mg/dL Estimated GFR ML/MIN Glucose (74-106) mg/dL Lactic Acid (0.4-2.0) Calcium (8.4-10.2) mg/dL Total Bilirubin (0.2-1.3) mg/dL AST (14-36) U/L ALT (0-35) U/L Alkaline Phosphatase (38-126) U/L Serum Total Protein (6.3-8.2) g/dL Albumin (3.5-5.0) g/dL - Progress Progress: unchanged Progress Note: 75 years old is evaluated in the ER for left-sided weakness and aphasia with left facial droop. She is made stroke activated, CT showed right MCA area hyperattenuation consistent with ischemic stroke. She is out of the window for TPA. Her NIH SS score is closer to 20. Stable CBC, has chronic renal failure which is stable. She is given rectal aspirin. I have discussed with her primary care Dr. Erickson recommended transfer to higher level of care. I have discussed with [facility] transfer center where patient was few days ago but there were no beds available. I have discussed with Dr. Parvez Gupta at [facility] and patient is accepted for transfer. Plan discussed with patient and family in detail who understand and agree with it. 05/18/20 10:35 Discussed with .: Mikaela, Other (Dr. Gupta [facility]) Counseled pt/family regarding: lab results, diagnosis, rad results - Departure Departure Disposition: Transfer Clinical Impression: Stroke Qualifiers: CVA mechanism: unspecified Qualified Code(s): I63.9 - Cerebral infarction, unspecified Condition: Fair Critical Care Time: Yes Critical Care Time(excluding separately billable procedures): Critical 30-74 mins Referrals: TESSA ERICKSON MD [Primary Care Provider] -
[2020-05-18 10:00] LABS: Absolute Neutrophil Ct (ANC) 6.43 (1.4-6.9); BASOPHIL % 0.1 % (0.0-0.4); Basophil (Absolute #) 0.01 (0-0.4); Eosinophil % 3.1 % (0.00-5.0); Eosinophil (Absolute #) 0.25 (0-0.5); Hematocrit 35.3 % (35-47); Hemoglobin 11.2 gm/dl (12.0-16.0); Mean Cell Volume 106.6 fl (78-100); Mean Corpuscular Hemoglobin 33.8 pg (26-32); Mean Corpuscular Hgb Concent. 31.7 g/dl (32-36); Mean Platelet Volume 8.8 fl (7.5-11.0); Monocyte (Absolute #) 0.55 (0.0-1.3); Monocytes % 6.8 % (0.0-12.0); Platelet Count 337 K/mm3 (150-450); Red Blood Count 3.31 M/mm3 (4.1-5.4); Red Cell Distribution Width 13.3 % (11.5-14.0)
[2020-05-18 10:12] LABS: ALBUMIN 4.1 g/dL (3.5-5.0); ANION GAP 17.5 MEQ/L (5-15); BILIRUBIN,TOTAL 0.5 mg/dL (0.2-1.3); Calcium 9.9 mg/dL (8.4-10.2); Creatinine 1 2.36 mg/dL (0.52-1.04); Potassium 3.9 mmol/L (3.5-5.1); Total Protein 8.5 g/dL (6.3-8.2)
--- NOTE | 2020-05-18 10:12 | XRAY ---
Exam: CT of the head without IV contrast from 05/18/2020. Comparison: CT of the head without IV contrast from 04/03/2012. Indication: Stroke protocol. Technique: Non-IV contrast axial images were obtained through the brain. Reconstructed coronal and sagittal images were created and reviewed. Findings: The patient's head is slightly tilted in the CT gantry. The ventricles appear of normal size and configuration. I note a large area of relative decreased brain attenuation within the right middle cerebral artery distribution as compared to the left side suggestive of a large right MCA cerebral infarct. I see no definite hemorrhage at this level. No abnormal extra-axial fluid collection is seen. There is no significant effacement upon the right lateral ventricle. There may be minimal effacement of the cortical sulci within the lower right parietal-temporal region as compared to the left side. Incidentally, on axial images #30 through #32, there is a minimal curvilinear high attenuation density within the left basal ganglia. It is also seen on coronal image #38. This would be a very unusual appearance for a small hemorrhage. Review of the prior CT from 04/03/2012 reveals perhaps a couple tiny high attenuation densities in this projection on axial images #22 and #23. However, this is easier to see on today's exam. It may represent a small high attenuation vessel. No other findings of hemorrhage are seen. No abnormal extra-axial fluid collection is seen. The posterior fossa appears unremarkable. Dense vascular calcification is seen within the distal right vertebral artery. Vascular calcification is also seen within the distal internal carotid arteries. The visualized paranasal sinuses reveal minimal mucosal thickening within the upper posterior right ethmoid sinus on axial image #29. No air-fluid levels are seen. The mastoid air cells are clear without effusion. The middle ear cavities appear grossly unremarkable. The orbits appear unremarkable. Impression: 1. CT findings consistent with an early acute/subacute ischemic infarct within the right middle cerebral artery distribution. There is no midline shift or significant effacement of the right lateral ventricle, although I believe there is some mild effacement of the cortical sulci within the right temporal region. A definite associated hemorrhage is not seen on the right. 2. On axial image #32, there is a tiny curvilinear high attenuation density within the left basal ganglia of unknown significance. Its configuration on coronal image #38 suggests a small high attenuation vessel. I doubt that this represents an acute hemorrhage. 3. Some cortical atrophic changes are seen as well as periventricular leukomalacia on the left consistent with small vessel ischemic disease. Note: I personally called this report to the emergency Department physician (Dr. Shea) at 9:30 AM on 05/18/2020.
--- NOTE | 2020-05-18 10:14 | XRAY ---
Exam: AP semiupright portable chest film from 05/18/2020. Comparison: AP and lateral upright chest films from 01/17/2017. Indication: 75-year-old female with stroke. Findings: The patient is rotated slightly toward the left. The patient's chin minimally obscures the upper margin of the left lung apex. The transverse heart size is normal. The jessica and mediastinal structures appear unremarkable. A right-sided Groshong catheter is seen with the tip pointing inferiorly at or just beyond the cavoatrial junction. This is unchanged. The lungs are mildly hypoinflated. No air space infiltrates, vascular congestion, pneumothorax, or pleural fluid is seen. No acute osseous process is seen. The bones appear demineralized. Impression: 1. No air space infiltrates or other acute cardiopulmonary disease is seen.
[2020-05-18 10:24] LABS: INR 1.15 (0.8-3.0)
[2020-05-18 10:27] LABS: PTT 32.7 SECONDS (25.3-37.0)
[2020-05-18] MEDS ORDERED: ASPIRIN 600 MG PR ONE (10:35)
[2020-05-18 10:36] VITALS: BP 150/70; PULSE 75; O2SAT 98
[2020-05-18] MEDS ORDERED: ASPIRIN 600 MG ONE (10:38)
== END 2020-05-18 11:01 | disposition short-term general hospital (02) ==
LOC: ED 09:19
DX: I63.9 Cerebral infarction, unspecified (principal); I12.9 Hypertensive chronic kidney disease with stage 1 through stage 4 chronic kidney disease, or unspecified chronic kidney disease; N18.9 Chronic kidney disease, unspecified; E78.5 Hyperlipidemia, unspecified; E11.9 Type 2 diabetes mellitus without complications; Z85.07 Personal history of malignant neoplasm of pancreas; N39.0 Urinary tract infection, site not specified; Z93.3 Colostomy status; Z79.899 Other long term (current) drug therapy; Z90.49 Acquired absence of other specified parts of digestive tract
CPT/HCPCS: 36000; 36415; 70450; 71045; 80053; 82962; 83605; 85025; 85610; 85730; 87040; 93005; 93041; 96360; 96374; 99285; 99291; A9270-GY